=== PATIENT | female | born 1990 | race Two or more races ===

== ENCOUNTER 2023-11-16 08:21 | Outpatient (CLI) | payer OTHER | END 2023-11-16 08:29 | disposition home or self-care (01) | LOC: TOM 08:21 | DX: N70.11 Chronic salpingitis (principal) ==

== ENCOUNTER 2024-07-06 06:45 | Day surgery (SDC) | payer OTHER ==
[2024-07-03 08:40] LABS: URINE APPEARANCE Clear; URINE BILIRRUBIN Negative (NEGATIVE); URINE BLOOD Negative; URINE COLOR Yellow; URINE GLUCOSE Negative (NEGATIVE); URINE KETONE Negative (NEGATIVE); URINE LEUKOCYTE Negative; URINE NITRATE Negative; URINE PROTEIN Negative (NEGATIVE); URINE UROBILINOGEN 0.2 E.U./dl
[2024-07-03 08:44] LABS: URINE BACTERIA 466.3 uL (0.0-1933); URINE EPITHELIAL CELLS 26.7 uL (0.0-38.8); URINE RBC 12.6 uL (0.0-20.8); URINE WBC 5.6 uL (0.0-23.2)
[2024-07-03 09:10] LABS: PARTIAL THROMBOPLASTIN TIME 27.6 SECONDS (22.0-34.0); PROTHROMBIN TIME 10.9 SECONDS (9.0-11.5)
[2024-07-03 09:55] LABS: ALBUMIN 3.4 gm/dL (3.4-5.0); BILIRUBIN TOTAL 0.29 mg/dL (0.3-1.2); CALCIUM 8.9 mg/dL (8.5-10.1); CREATININE SERUM 0.5 mg/dL (0.55-1.02); GFR 143.9; GLOBULINA 3.4 G/DL (2.4-3.5); POTASSIUM 3.92 mEq/L (3.5-5.1); TOTAL PROTEIN 6.8 gm/dL (6.4-8.2)
[2024-07-03 09:58] LABS: BASO % 0.5 % (0.1-1.2); HEMATOCRIT 37.3 % (34.1-44.9); HEMOGLOBIN 12.5 g/dL (11.2-15.7); LYMPH # 1.84 (1.18-3.74); LYMPH % 44.4 % (19.3-53.1); MEAN CORPUSCULAR HEMOGLOBIN 30.3 pg (25.6-32.2); MONO # 0.44 (0.24-0.82); MONO % 10.6 % (4.7-12.5); NEUT # 1.79 (1.56-6.13); NEUT % 43.3 % (34.0-71.1); PLATELET COUNT 223 K/uL (163-369); RED BLOOD COUNT 4.12 M/uL (3.93-5.22)
[2024-07-03 09:59] LABS: EOS # 0.04 (0.04-0.54)
[2024-07-06] MEDS ORDERED: CEFAZOLIN SODIUM 1,000 MG VIAL ONE (10:07)
[2024-07-06] MEDS ORDERED: POVIDONE-IODINE 118 ML BOTT TOP ONE (12:10)
[2024-07-06] MEDS ORDERED: OXYTOCIN 10 UNITS/ML VIAL ONE (12:23)
[2024-07-06] MEDS ORDERED: OXYTOCIN 20 UNITS/1000ML RL PIGGYBAG IV ONE (12:30)
[2024-07-06] MEDS ORDERED: MORPHINE SULFATE 4 MG/ML VIAL IV ONE (14:05)
== END 2024-07-06 15:15 | disposition home or self-care (01) ==
LOC: CIR.AMB 06:45
PROVIDERS: ATTEND Specialist
DX: O02.1 Missed abortion (principal)

== ENCOUNTER 2024-11-05 12:31 | Outpatient (CLI) | payer OTHER | END 2024-11-05 12:33 | disposition home or self-care (01) | LOC: SONOGRAMA 12:31 | PROVIDERS: ATTEND Specialist | DX: D17.1 Benign lipomatous neoplasm of skin and subcutaneous tissue of trunk (principal) ==

== ENCOUNTER 2025-01-22 09:00 | Day surgery (SDC) | payer OTHER ==
[2025-01-16 08:05] LABS: BASO % 0.5 % (0.1-1.2); EOS # 0.04 (0.04-0.54); EOS % 1.0 % (0.7-7.0); LYMPH # 1.83 (1.18-3.74); LYMPH % 46.0 % (19.3-53.1); MEAN PLATELET VOLUME 9.30 fl (9.4-12.4); MONO # 0.43 (0.24-0.82); MONO % 10.8 % (4.7-12.5); NEUT # 1.64 (1.56-6.13); NEUT % 41.2 % (34.0-71.1); RED CELL DISTRIBUTION WIDTH 12.0 % (11.6-14.4)
[2025-01-16 08:24] LABS: INR 1.01
[2025-01-16 08:55] LABS: URINE APPEARANCE Clear; URINE BILIRRUBIN Negative (NEGATIVE); URINE BLOOD Negative; URINE COLOR Yellow; URINE GLUCOSE Negative (NEGATIVE); URINE KETONE Negative (NEGATIVE); URINE LEUKOCYTE Negative; URINE NITRATE Negative; URINE PROTEIN Negative (NEGATIVE); URINE UROBILINOGEN 0.2 E.U./dl
[2025-01-16 08:59] LABS: URINE BACTERIA 34.8 uL (0.0-1933); URINE EPITHELIAL CELLS 5.5 uL (0.0-38.8); URINE RBC 7.9 uL (0.0-20.8); URINE WBC 2.9 uL (0.0-23.2)
[2025-01-16 09:06] LABS: URINE CAST 0.00 uL (0.0-1.40)
[2025-01-16 10:07] LABS: ALT/SGPT 18.0 U/L (12-78); AST/SGOT 7.0 U/L (15-37); BILIRUBIN TOTAL 0.35 mg/dL (0.3-1.2); BUN CREA RATIO 21.0 (7.0-25.0); CREATININE SERUM 0.66 mg/dL (0.55-1.02); GFR 103.78; GLOBULINA 3.2 G/DL (2.4-3.5); GLUCOSE FASTING 95.0 mg/dL (65-100); OSMOLALITY SERUM 287.0 MOSM/KG (275-295)
[~2025-01-22 09:00] MED LIST: CEFAZOLIN SODIUM 1,000 MG VIAL ONE; HEMOSTATIC MATRIX 1 KIT KIT TOP ONE
[2025-01-22] MEDS ORDERED: LIDOCAINE HCL 1%/EPINEPHRINE 20ML VIAL IJ ONE (09:10)
[2025-01-22] MEDS ORDERED: CEFAZOLIN SODIUM 1,000 MG VIAL IV SCH (10:15)
[2025-01-22] MEDS ORDERED: CEFAZOLIN SODIUM 1,000 MG VIAL ONE (10:39)
== END 2025-01-22 11:55 | disposition home or self-care (01) ==
LOC: CIR.AMB 09:00
PROVIDERS: ATTEND Specialist
DX: D17.1 Benign lipomatous neoplasm of skin and subcutaneous tissue of trunk (principal)